=== PATIENT | male | born 1985 | race Two or more races ===

== ENCOUNTER 2023-09-12 00:20 | Inpatient (IN) | payer MEDICAID, OTHER ==
[~2023-09-12] VITALS: Ht 154.9 cm; Wt 60.8 kg
[2023-09-12] MEDS ORDERED: ONDANSETRON HCL/PF 4 MG/2 ML VIAL ONE (01:33)
[2023-09-12] MEDS ORDERED: PANTOPRAZOLE 40 MG VIAL ONE (01:33)
[2023-09-12] MEDS: IV NS 0.9% 1,000 ML BAG IV ONE (01:34)
[2023-09-12] MEDS: ONDANSETRON HCL/PF 4 MG/2 ML VIAL IVP ONE (01:34)
[2023-09-12] MEDS: PANTOPRAZOLE 40 MG VIAL IV ONE (01:34)
[2023-09-12 01:49] LABS: BASOPHILS % (AUTO) 0.3 % (0.0-2.0); EOSINOPHILS # (AUTO) 0.1 K/uL (0.0-0.7); EOSINOPHILS % (AUTO) 0.7 % (0.0-6.0); HEMATOCRIT 42 % (39-51); HEMOGLOBIN 14.3 g/dL (13.5-17.5); LYMPHOCYTES # (AUTO) 1.4 K/uL (0.8-4.8); LYMPHOCYTES % (AUTO) 10.6 % (20.0-44.0); MEAN CORPUSCULAR HEMOGLOBIN 29 PG (26.0-33.0); MEAN CORPUSCULAR HGB CONC 34 g/dl (31.0-36.0); MEAN CORPUSCULAR VOLUME 86 fL (80-96); MONOCYTES # (AUTO) 0.7 K/uL (0.1-1.30); MONOCYTES % (AUTO) 5.2 % (2.0-12.0); NEUTROPHILS # (AUTO) 11.2 K/uL (1.8-8.9); NEUTROPHILS % (AUTO) 83.2 % (43.0-81.0); PLATELET COUNT (AUTO) 293 K/uL (150-450); RED BLOOD CELL COUNT(AUTO) 4.89 MIL/uL (4.5-6.0); RED CELL DISTRIBUTION WIDTH 13.1 % (11.5-15.0); WHITE BLOOD COUNT (AUTO) 13.5 K/uL (4.3-11.0)
[2023-09-12 02:11] LABS: ALBUMIN 4.1 g/dL (3.4-5.0); BILIRUBIN,DIRECT 0.2 mg/dL (0.0-0.2); BILIRUBIN,TOTAL 0.9 mg/dL (0.2-1.0); CALCIUM, SERUM 8.7 mg/dL (8.5-10.1); CREATININE 0.9 mg/dL (0.6-1.3); POTASSIUM 3.7 mmol/L (3.5-5.1); TOTAL PROTEIN, SERUM 8.1 g/dL (6.4-8.2)
[2023-09-12] MEDS ORDERED: PIPERACI/TAZO 3.375GM/D5W 50ML PB IV ONE (03:10)
[2023-09-12] MEDS ORDERED: KETOROLAC TROMETHAMINE INJ 30 MG/ML VIAL ONE (03:10)
[2023-09-12] MEDS: KETOROLAC TROMETHAMINE INJ 30 MG/ML VIAL IV ONE (03:11)
[2023-09-12] MEDS: PIPERACILLIN /TAZOBACTAM 3.375 G in IV D5W 50 ML IV ONE (03:11)
[2023-09-12 04:50] VITALS: BP 115/79; TEMP 98; O2SAT 98
[2023-09-12] MEDS ORDERED: ONDANSETRON HCL/PF 4 MG/2 ML VIAL IVP PRN (07:00)
[2023-09-12] MEDS: IV NS 0.9% 1,000 ML IV PRN (07:51)
[2023-09-12 08:00] VITALS: BP 114/78; TEMP 98.3; O2SAT 99
[2023-09-12] MEDS: ZOSYN IVPB 3.375 G in IV D5W 50ml IV SCH (09:04)
[2023-09-12] MEDS: PANTOPRAZOLE 40 MG VIAL IV SCH (09:04)
[2023-09-12] MEDS: MORPHINE SULFATE INJ 2 MG/ML DISP.SYRIN SQ PRN (09:06)
[2023-09-12 20:00] VITALS: BP 120/85; TEMP 98.2; O2SAT 97
[2023-09-13 07:35] LABS: BASOPHILS % (AUTO) 0.2 % (0.0-2.0); EOSINOPHILS # (AUTO) 0.1 K/uL (0.0-0.7); EOSINOPHILS % (AUTO) 1.5 % (0.0-6.0); HEMATOCRIT 37 % (39-51); HEMOGLOBIN 12.9 g/dL (13.5-17.5); LYMPHOCYTES # (AUTO) 1.6 K/uL (0.8-4.8); LYMPHOCYTES % (AUTO) 18.7 % (20.0-44.0); MEAN CORPUSCULAR HEMOGLOBIN 30 PG (26.0-33.0); MEAN CORPUSCULAR HGB CONC 35 g/dl (31.0-36.0); MEAN CORPUSCULAR VOLUME 87 fL (80-96); MONOCYTES # (AUTO) 0.6 K/uL (0.1-1.30); MONOCYTES % (AUTO) 7.5 % (2.0-12.0); NEUTROPHILS % (AUTO) 72.1 % (43.0-81.0); PLATELET COUNT (AUTO) 257 K/uL (150-450); RED BLOOD CELL COUNT(AUTO) 4.28 MIL/uL (4.5-6.0); WHITE BLOOD COUNT (AUTO) 8.3 K/uL (4.3-11.0)
[2023-09-13 07:54] LABS: CREATININE 0.8 mg/dL (0.6-1.3); MAGNESIUM 2.2 mg/dL (1.8-2.4); POTASSIUM 3.4 mmol/L (3.5-5.1)
[2023-09-13 08:00] VITALS: BP_SYST 103; BP_DIAS 69; BP_DIAS 70; TEMP 97.5; TEMP 97.8; O2SAT 97
[2023-09-13 08:31] LABS: CALCIUM, SERUM 8.1 mg/dL (8.5-10.1)
[2023-09-13] MEDS ORDERED: VANCOMYCIN 1 GM VIAL ONE (10:07)
[2023-09-13] MEDS ORDERED: LIDOCAINE 1%-EPI 1:100,000 20 ML VIAL ONE (10:45)
[2023-09-13] MEDS ORDERED: BUPIVACAINE 0.5 % PF 150 MG/30 ML VIAL ONE (10:45)
[2023-09-13] MEDS ORDERED: FENTANYL PF 100MCG/2ML AMPUL ONE (11:14)
[2023-09-13] MEDS ORDERED: FAMOTIDINE/PF INJ 20 MG/2 ML VIAL IV ONE (11:15)
[2023-09-13] MEDS ORDERED: MIDAZOLAM HCL 2 MG/2ML VIAL ONE (11:15)
[2023-09-13] MEDS ORDERED: GLYCOPYRROLATE 0.2 MG/ML VIAL ONE (12:14)
[2023-09-13] MEDS ORDERED: BACITRACIN ZINC OINT PACKET 1 EA PACKET TP ONE (12:16)
[2023-09-13] MEDS ORDERED: ANESTHESIA TRAY IN PYXIS 1 EA TRAY MC ONE (12:52)
[2023-09-13 13:10] VITALS: BP 107/72; TEMP 98.1; O2SAT 99
[2023-09-13] MEDS: POTASSIUM CL. PREMIX PERIPHER. 50 ML IV SCH (15:59)
[2023-09-13 16:00] VITALS: BP 102/72; TEMP 98.3; O2SAT 98
[2023-09-13] MEDS: IV LR 1000 ML 1,000 ML BAG IV ONE (16:35)
[2023-09-13 20:00] VITALS: BP 105/73; TEMP 98.4; O2SAT 100
[2023-09-13 20:07] VITALS: BP 105/73; TEMP 98.4; O2SAT 100
[2023-09-14] MEDS: ACETAMINOPHEN 325 MG TABLET PO PRN (02:48)
[2023-09-14 08:00] VITALS: BP 105/74; TEMP 98; O2SAT 98
[2023-09-14] MEDS: HYDROCODONE/APAP 5/325MG TABLET PO PRN (10:08)
[2023-09-14] MEDS: PANTOPRAZOLE 40 MG TABLET.DR PO SCH (10:09)
[2023-09-14] MEDS ORDERED: HYDR-3972 PO (11:56)
[2023-09-14] MEDS ORDERED: ONDA4TAB11 PO (11:56)
[2023-09-14 12:48] LABS: CALCIUM, SERUM 8.2 mg/dL (8.5-10.1); MAGNESIUM 2.1 mg/dL (1.8-2.4); POTASSIUM 3.6 mmol/L (3.5-5.1)
[2023-09-14 13:34] LABS: BASOPHILS % (AUTO) 0.4 % (0.0-2.0); EOSINOPHILS # (AUTO) 0.1 K/uL (0.0-0.7); EOSINOPHILS % (AUTO) 1.2 % (0.0-6.0); HEMATOCRIT 36 % (39-51); HEMOGLOBIN 12.5 g/dL (13.5-17.5); LYMPHOCYTES # (AUTO) 2.3 K/uL (0.8-4.8); LYMPHOCYTES % (AUTO) 35.8 % (20.0-44.0); MEAN CORPUSCULAR HEMOGLOBIN 30 PG (26.0-33.0); MEAN CORPUSCULAR HGB CONC 35 g/dl (31.0-36.0); MEAN CORPUSCULAR VOLUME 87 fL (80-96); MONOCYTES # (AUTO) 0.5 K/uL (0.1-1.30); MONOCYTES % (AUTO) 7.5 % (2.0-12.0); NEUTROPHILS # (AUTO) 3.6 K/uL (1.8-8.9); NEUTROPHILS % (AUTO) 55.1 % (43.0-81.0); PLATELET COUNT (AUTO) 272 K/uL (150-450); RED BLOOD CELL COUNT(AUTO) 4.12 MIL/uL (4.5-6.0); RED CELL DISTRIBUTION WIDTH 13.2 % (11.5-15.0); WHITE BLOOD COUNT (AUTO) 6.5 K/uL (4.3-11.0)
== END 2023-09-14 15:54 | disposition home or self-care (01) | DRG 710 ==
LOC: ER 00:35 → MED 03:52
PROVIDERS: ADMIT Student in an Organized Health Care Education/Training Program; ATTEND Nurse Practitioner Family
PROC: 0DTJ4ZZ Resection of Appendix, Percutaneous Endoscopic Approach (ICD-10-PCS; principal; 2023-09-13)
DX: A41.9 Sepsis, unspecified organism (principal); E87.1 Hypo-osmolality and hyponatremia; K35.80 Unspecified acute appendicitis; Z90.49 Acquired absence of other specified parts of digestive tract; E86.0 Dehydration; Z83.3 Family history of diabetes mellitus; R79.89 Other specified abnormal findings of blood chemistry
CPT/HCPCS: 36415; 71045-TC; 80048-TC; 80076-TC; 83690-TC; 83735-TC; 84100-TC; 85025-TC; 87081-TC; A4223; C9113; G0378; J0690; J1100; J1885; J2250; J2270; J2405; J2543; J2704; J2765; J3010; J3370; J3480; J3490; J7030; J7060; J7120